=== PATIENT | female | born 1975 | race African-American/Black ===

== ENCOUNTER 2024-06-04 17:04 | Emergency (ER) | payer MEDICAID, OTHER ==
[~2024-06-04] VITALS: Ht 152.4 cm; Wt 71.0 kg
[~2024-06-04 17:04] MED LIST: LISI2.5T47 PO
[2024-06-04 17:07] VITALS: O2SAT 100
[2024-06-04] MEDS: ONDANSETRON 4MG ODT PO ONE (19:33)
[2024-06-04] MEDS ORDERED: ONDA4TAB50 MT (19:50)
[2024-06-04 20:06] VITALS: BP 148/81; PULSE 70; RESP 16; TEMP 36.8; O2SAT 100
== END 2024-06-04 20:08 | disposition home or self-care (01) ==
LOC: ER 17:04
DX: B34.9 Viral infection, unspecified (principal); I10 Essential (primary) hypertension; F12.90 Cannabis use, unspecified, uncomplicated; Z20.822 Contact with and (suspected) exposure to COVID-19
CPT/HCPCS: 99283; 87426; Q0162

== ENCOUNTER 2024-06-09 17:18 | Emergency (ER) | payer OTHER ==
[~2024-06-09] VITALS: Ht 160 cm; Wt 67.0 kg
[~2024-06-09 17:18] MED LIST changes: +ONDA4TAB50 MT
[2024-06-09 17:20] VITALS: O2SAT 100
[2024-06-10 00:41] LABS: BASOPHILS % 0.5 % (0.0-2.0); EOSINOPHILS % 0.9 % (0.0-5.0); HEMATOCRIT. 35.4 % (36.0-48.0); HEMOGLOBIN. 11.3 g/dL (12.0-16.0); LYMPHOCYTES % 34.3 % (20.0-50.0); MEAN CORPUSCULAR HEMOGLOBIN 27.3 pg (28.0-32.0); MEAN CORPUSCULAR VOLUME 85.3 fL (81.0-99.0); MEAN PLATELET VOLUME 9.2 fl (7.4-10.4); MONOCYTES % 9.6 % (2.0-8.0); NEUTROPHILS % 54.7 % (40.0-76.0); PLATELET 286 x1000/uL (130-400); RED BLOOD CELL COUNT 4.15 mill/uL (4.2-5.4); RED CELL DISTRIBUTION WIDTH 15.2 % (11.6-14.6); WHITE BLOOD COUNT 11.3 x1000/uL (4.5-11.0)
[2024-06-10 00:46] LABS: CHLORIDE 108 mEq/L (98-107); POTASSIUM 3.5 mEq/L (3.5-5.1); SODIUM 141 mEq/L (136-145)
[2024-06-10 00:47] LABS: CARBON DIOXIDE 25 mEq/L (21-32)
[2024-06-10 00:48] LABS: CALCIUM 9.2 mg/dL (8.7-10.4)
[2024-06-10 00:52] LABS: CREATININE 0.8 mg/dL (0.6-1.0); GLUCOSE 94 mg/dL (70-105); UREA NITROGEN BLOOD 6 mg/dL (9-23)
[2024-06-10] MEDS ORDERED: LOPE2TAB26 MT (01:19)
[2024-06-10 02:22] VITALS: BP 143/89; PULSE 79; RESP 18; TEMP 36.8; O2SAT 100
== END 2024-06-10 02:23 | disposition home or self-care (01) ==
LOC: ER 17:18
DX: R19.7 Diarrhea, unspecified (principal); I10 Essential (primary) hypertension; F12.90 Cannabis use, unspecified, uncomplicated
CPT/HCPCS: 36415; 80048; 85025; 99283